=== PATIENT | male | born 1955 | race Caucasian/White ===

== ENCOUNTER 2018-08-06 06:11 | Observation (INO) ==
--- NOTE | 2018-08-06 06:53 | Emergency Department Note ---
Disposition Clinical Impression: Aphthous ulcer, Suspected soft tissue infection Disposition: Admitted As Inpatient Condition: Fair Referrals: NONE,PCP [Primary Care Provider] - Forms: ED Satisfaction Letter, Work/School Release Time of Disposition: 10:09 General Adult HPI - General Chief complaint: ED General Medical Stated complaint: "Oral Gland issues" Time Seen by Provider: 08/06/18 06:34 Source: patient Limitations: no limitations Nursing Notes Reviewed: Yes Vital Signs Reviewed: Yes - History of Present Illness HPI Narrative: Nontoxic-appearing 63-year-old male arrives to the ED complaining of a four-day history of mouth pain and subjective fever. Patient states that pain started 4 days ago felt like he bit his tongue. Mouth pain has increased and he complains of pain to his throat and subjective fevers 2 days as well as some mild nausea. Pain makes difficult to swallow. Patient has taken Tylenol 4 hours ago with no relief. Patient has not checked his temperature at home but states that he feels achy and chills. Patient also complains of swollen glands in his neck. Patient denies difficulty managing secretions, chest pain, shortness of breath or cough. Onset (ago): day(s) Location: mouth, neck Radiation: non-radiation Pain Severity: severe Pain Scale: 8 Quality: other Consistency: Worsening Improves with: nothing Worsens with: eating Associated symptoms: Reports: fever/chills Treatments Prior to Arrival: other (Tylenol with no relief) - Related Data Home Medications Medication Instructions Recorded Confirmed Gabapentin [Neurontin] 800 mg PO TID 08/06/18 08/06/18 Allergies Allergy/AdvReac Type Severity Reaction Status Date / Time Cyclobenzaprine AdvReac Nausea Verified 08/06/18 06:16 [From Flexeril] All systems ED: reviewed and negative except as stated. Review of Systems: As Per HPI Constitutional: Reports: fever (Subjective), chills. Denies: weakness, weight change Eyes: Denies: eye pain, eye discharge, vision change ENT ED: Reports: throat pain (With odynophagia), dental pain. Denies: ear pain, hearing loss, epistaxis, congestion, dysphagia Cardiovascular: Denies: chest pain, palpitations, dyspnea on exertion, edema, syncope Respiratory: Denies: cough, dyspnea, wheezes, hemoptysis, stridor Gastrointestinal: Reports: as per HPI, nausea. Denies: abdominal pain, vomiting, diarrhea, constipation, hematemesis, melena, hematochezia Genitourinary: Denies: urgency, dysuria, frequency, hematuria Musculoskeletal: Denies: back pain, neck pain, arthralgia, myalgia Integumentary: Denies: rash, abrasion, lesions Neurological: Denies: headache, weakness, numbness, paresthesias, confusion, abnormal gait, vertigo Psychiatric: Denies: anxiety, depression, suicidal thoughts, homicidal thoughts, auditory hallucinations, visual hallucinations Endocrine: Denies: fatigue Hematological/Lymphatic: Denies: easy bleeding, easy bruising Allergic/Immunologic: Denies: facial swelling, urticaria Past Medical History - Past Medical History Attestation: Yes The following information was validated with the patient. Source: patient, obtained from family, nursing notes reviewed Medical history: Reports: arthritis, other Surgical history: Reports: knee replacement (right, 2012 (Dr. De Guzman)) Psychiatric history: Reports: no psych history - Social History Smoking Status: Never smoker Smokeless Tobacco Status: No Alcohol use: Reports: none Drug use: Reports: none Physical Exam - General Limitations: no limitations General appearance: alert, in no apparent distress - Head Head exam: atraumatic, normocephalic - Eye Eye exam: Present: normal appearance, PERRL, EOMI. Absent: conjunctival injection - ENT ENT exam: mucous membranes moist - Expanded ENT Exam External ear exam: Present: normal external inspection. Absent: periauricular adenopathy Mouth exam: Present: tongue elevation, other (Multiple aphthous appearing ulcers noted to tongue, soft palate, bilateral tonsils with halitosis.). Absent: drooling, trismus, lip swelling, tongue normal, tounge swelling Teeth exam: Present: dental caries (Multiple) Throat exam: Present: tonsillar erythema, tonsillomegaly, tonsillar exudate, other (Uvula midline). Absent: R peritonsillar mass, L peritonsillar mass, muffled voice - Neck Neck exam: Present: tenderness, lymphadenopathy - Chest Chest inspection: Present: symmetric chest wall rise - Respiratory Respiratory exam: Present: normal lung sounds bilaterally. Absent: respiratory distress, wheezes - Extremities Exam Extremities exam: Present: normal inspection, full ROM - Neurological Exam Neurological exam: Present: alert, oriented X3, normal gait - Psychiatric Psychiatric exam: Present: normal affect, normal mood - Skin Skin exam: Present: warm, dry, intact, normal color Course Course Narrative: I spoke with Dr. Nogueira of the hospitalist service who has accepted the patient for admission to the hospitalist care. 1012: Dr. Roberts has evaluated the patient in the emergency department. She feels as if the patient does have a concomitant herpes infection. She recommends IV acyclovir. She also recommends increasing the patient's gabapentin to 1200 mg to 1600 mg, which may help with analgesia. - Consultations Consultation #1: I spoke with Dr. Roberts, ENT collections clerk. I discussed the patient's case, presentation, laboratory, and radiology findings. She suggested discharge home with oral clindamycin and a Medrol Dosepak and having the patient follow-up in the office next week for further evaluation and potential scoping. After discussing this with the patient and his significant other, they asked for admission for observation for concerns of potential airway compromise. As such, I spoke again with Dr. Roberts who states that this is reasonable. She states that she will be glad to consult with the patient in house. She does recommend continuing IV clindamycin and Decadron, 10 mg IV push every 8 hours 24 hours. Formal ENT consult has been placed in [facility]. Time: 09:10 Vital Signs Temperature 99 F 08/06/18 06:14 Pulse Rate 99 08/06/18 06:14 Respiratory Rate 20 08/06/18 06:14 Blood Pressure 165/98 08/06/18 06:14 O2 Sat by Pulse Oximetry 97 08/06/18 06:14 Temperature 99.9 F H 08/06/18 09:43 Pulse Rate 78 08/06/18 09:43 Respiratory Rate 16 08/06/18 09:43 Blood Pressure 133/87 08/06/18 09:43 O2 Sat by Pulse Oximetry 96 08/06/18 09:43 Oxygen Delivery Oxygen Delivery Room Air Medical Decision Making - Medical Records Medical records reviewed: Yes I reviewed the patient's medical records. - Lab Data Lab results reviewed: Yes I reviewed the patient's lab results. Lab results narrative: Lab Results 08/06/18 08/06/18 08/06/18 Range/Units 07:25 07:25 08:03 WBC 12.3 H (4.3-11.1) K/mcL RBC 5.42 (4.19-5.50) M/mcL Hgb 17.1 H (12.9-16.9) g/dL Hct 49.8 (37.5-50.1) % MCV 91.9 (83.0-100.0) fL MCH 31.5 (28.0-33.3) pg MCHC 34.3 (31.6-35.5) g/dL RDW 12.8 (11.5-14.5) % Plt Count 321 (140-400) K/mcL MPV 9.7 (9.4-12.4) fL Immature Gran % 0.5 (0-4) % Seg Neutrophils % 73.0 % Lymphocytes % 13.3 % Monocytes % 12.6 % Eosinophils % 0.0 % Basophils % 0.6 % Neutrophils # 9.0 H (1.6-8.9) K/mcL Lymphocytes # 1.6 (0.6-4.6) K/mcL Monocytes # 1.6 H (0.0-1.3) K/mcL Eosinophils # 0.0 (0.0-0.6) K/mcL Basophils # 0.1 (0.0-0.2) K/mcL Sodium 136 (136-145) mEq/L Potassium 4.0 (3.5-5.1) mEq/L Chloride 101 (98-107) mEq/L Carbon Dioxide 26 (23-29) mEq/L BUN 17 (8-23) mg/dL Creatinine 0.91 (0.70-1.30) mg/dL Est GFR ( Amer) > 60 (> 60) Est GFR (Non-Af Amer) > 60 (> 60) BUN/Creatinine Ratio 19 (6-26) Glucose 102 (70-105) mg/dL Calculated Osmolality 284 (280-300) Lactic Acid (0.5-2.2) mmol/L Calcium 9.7 (8.6-10.3) mg/dL Infectious [place] Assay Negative (Negative) 08/06/18 Range/Units 09:33 WBC (4.3-11.1) K/mcL RBC (4.19-5.50) M/mcL Hgb (12.9-16.9) g/dL Hct (37.5-50.1) % MCV (83.0-100.0) fL MCH (28.0-33.3) pg MCHC (31.6-35.5) g/dL RDW (11.5-14.5) % Plt Count (140-400) K/mcL MPV (9.4-12.4) fL Immature Gran % (0-4) % Seg Neutrophils % % Lymphocytes % % Monocytes % % Eosinophils % % Basophils % % Neutrophils # (1.6-8.9) K/mcL Lymphocytes # (0.6-4.6) K/mcL Monocytes # (0.0-1.3) K/mcL Eosinophils # (0.0-0.6) K/mcL Basophils # (0.0-0.2) K/mcL Sodium (136-145) mEq/L Potassium (3.5-5.1) mEq/L Chloride (98-107) mEq/L Carbon Dioxide (23-29) mEq/L BUN (8-23) mg/dL Creatinine (0.70-1.30) mg/dL Est GFR ( Amer) (> 60) Est GFR (Non-Af Amer) (> 60) BUN/Creatinine Ratio (6-26) Glucose (70-105) mg/dL Calculated Osmolality (280-300) Lactic Acid 0.7 (0.5-2.2) mmol/L Calcium (8.6-10.3) mg/dL Infectious [place] Assay (Negative) Result diagrams: 08/06/18 07:25 08/06/18 07:25 Lab Results 08/06/18 08/06/18 08/06/18 Range/Units 07:25 07:25 08:03 WBC 12.3 H (4.3-11.1) K/mcL RBC 5.42 (4.19-5.50) M/mcL Hgb 17.1 H (12.9-16.9) g/dL Hct 49.8 (37.5-50.1) % MCV 91.9 (83.0-100.0) fL MCH 31.5 (28.0-33.3) pg MCHC 34.3 (31.6-35.5) g/dL RDW 12.8 (11.5-14.5) % Plt Count 321 (140-400) K/mcL MPV 9.7 (9.4-12.4) fL Immature Gran % 0.5 (0-4) % Seg Neutrophils % 73.0 % Lymphocytes % 13.3 % Monocytes % 12.6 % Eosinophils % 0.0 % Basophils % 0.6 % Neutrophils # 9.0 H (1.6-8.9) K/mcL Lymphocytes # 1.6 (0.6-4.6) K/mcL Monocytes # 1.6 H (0.0-1.3) K/mcL Eosinophils # 0.0 (0.0-0.6) K/mcL Basophils # 0.1 (0.0-0.2) K/mcL Sodium 136 (136-145) mEq/L Potassium 4.0 (3.5-5.1) mEq/L Chloride 101 (98-107) mEq/L Carbon Dioxide 26 (23-29) mEq/L BUN 17 (8-23) mg/dL Creatinine 0.91 (0.70-1.30) mg/dL Est GFR ( Amer) > 60 (> 60) Est GFR (Non-Af Amer) > 60 (> 60) BUN/Creatinine Ratio 19 (6-26) Glucose 102 (70-105) mg/dL Calculated Osmolality 284 (280-300) Lactic Acid (0.5-2.2) mmol/L Calcium 9.7 (8.6-10.3) mg/dL Infectious [place] Assay Negative (Negative) 08/06/18 Range/Units 09:33 WBC (4.3-11.1) K/mcL RBC (4.19-5.50) M/mcL Hgb (12.9-16.9) g/dL Hct (37.5-50.1) % MCV (83.0-100.0) fL MCH (28.0-33.3) pg MCHC (31.6-35.5) g/dL RDW (11.5-14.5) % Plt Count (140-400) K/mcL MPV (9.4-12.4) fL Immature Gran % (0-4) % Seg Neutrophils % % Lymphocytes % % Monocytes % % Eosinophils % % Basophils % % Neutrophils # (1.6-8.9) K/mcL Lymphocytes # (0.6-4.6) K/mcL Monocytes # (0.0-1.3) K/mcL Eosinophils # (0.0-0.6) K/mcL Basophils # (0.0-0.2) K/mcL Sodium (136-145) mEq/L Potassium (3.5-5.1) mEq/L Chloride (98-107) mEq/L Carbon Dioxide (23-29) mEq/L BUN (8-23) mg/dL Creatinine (0.70-1.30) mg/dL Est GFR ( Amer) (> 60) Est GFR (Non-Af Amer) (> 60) BUN/Creatinine Ratio (6-26) Glucose (70-105) mg/dL Calculated Osmolality (280-300) Lactic Acid 0.7 (0.5-2.2) mmol/L Calcium (8.6-10.3) mg/dL Infectious [place] Assay (Negative) - Radiology Data Radiology results reviewed: Yes I reviewed the patient's radiology results. Soft Tissue Neck CT 08/06/18 07:04 IMPRESSION: Asymmetric prominence and enhancement in the region of the right palatine tonsil and posterior right tongue base, suspicious for infection/inflammation versus underlying neoplasm, new since April 19, 2011. Recommend correlation with direct visualization. Enhancement of the lingual tonsils bilaterally, and mild enhancement of the left palatine tonsil, may be related to tumor versus infection/inflammation, to lesser degree compared to the right palatine tonsil. Recommend correlation with direct visualization. Borderline prominence of the bilateral cervical lymph nodes, particularly at bilateral levels 1B and 1A, likely reactive. Underlying metastasis cannot be excluded. D/ / Jatinder Rosales MD / Jatinder Rosales MD Interpreting Provider: Jatinder Rosales MD Attestation Statement - Attestation Attestation: I, Stevan Llanes DO have provided [id number] time during the care of this patient. Detailed review the presentation, symptoms, medical history were discussed and reviewed with the advanced practice provider Elver Montaño PA-C/[employer]. Medical intervention labs and imaging studies were reviewed in detail. See full documentation of physical exam and course of care in the advanced practice provider's note. I agree with the determined course of care, medical inte rvention and disposition put forth by the advanced practice provider. See below documentation for changes or alterations in documentation.
[2018-08-06] MEDS ORDERED: Isovue-370 500 ML BOTTLE IVP ONE (07:04)
[2018-08-06] MEDS ORDERED: Magic Mouthwash 10 ML UD Cup PO STA (07:33)
[2018-08-06 07:40] LABS: Basophils % 0.6 %; Hematocrit 49.8 % (37.5-50.1); Hemoglobin 17.1 g/dL (12.9-16.9); Immature Granulocytes % 0.5 % (0-4); Lymphocytes % 13.3 %; Mean Corpuscular HGB Conc 34.3 g/dL (31.6-35.5); Mean Corpuscular Hemoglobin 31.5 pg (28.0-33.3); Mean Corpuscular Volume 91.9 fL (83.0-100.0); Mean Platelet Volume 9.7 fL (9.4-12.4); Monocytes % 12.6 %; Platelet Count 321 K/mcL (140-400); Red Blood Count 5.42 M/mcL (4.19-5.50); Red Cell Distribution Width 12.8 % (11.5-14.5); White Blood Count 12.3 K/mcL (4.3-11.1)
[2018-08-06 07:41] LABS: Basophils # 0.1 K/mcL (0.0-0.2); Lymphocytes # 1.6 K/mcL (0.6-4.6); Monocytes # 1.6 K/mcL (0.0-1.3)
--- NOTE | 2018-08-06 07:54 | Emergency Department Note ---
Disposition Clinical Impression: Aphthous ulcer, Suspected soft tissue infection Disposition: Admitted As Inpatient Condition: Fair Referrals: NONE,PCP [Primary Care Provider] - Forms: ED Satisfaction Letter, Work/School Release Time of Disposition: 09:50 General Adult HPI - General Chief complaint: ED Dental/Oral Stated complaint: "Oral Gland issues" Time Seen by Provider: 08/06/18 06:34 Source: patient Limitations: no limitations - History of Present Illness Location: mouth, neck Pain Scale: 8 Quality: other Improves with: nothing Worsens with: eating Associated symptoms: Reports: fever/chills Treatments Prior to Arrival: other (Tylenol with no relief) - Related Data Home Medications Medication Instructions Recorded Confirmed Gabapentin [Neurontin] 800 mg PO TID 08/06/18 08/06/18 Allergies Allergy/AdvReac Type Severity Reaction Status Date / Time Cyclobenzaprine AdvReac Nausea Verified 08/06/18 06:16 [From Flexeril] Constitutional: Reports: fever (Subjective), chills. Denies: weakness, weight change Eyes: Denies: eye pain, eye discharge, vision change ENT ED: Reports: throat pain (With odynophagia), dental pain. Denies: ear pain, hearing loss, epistaxis, congestion, dysphagia Cardiovascular: Denies: chest pain, palpitations, dyspnea on exertion, edema, syncope Respiratory: Denies: cough, dyspnea, wheezes, hemoptysis, stridor Gastrointestinal: Reports: as per HPI, nausea. Denies: abdominal pain, vomiting , diarrhea, constipation, hematemesis, melena, hematochezia Genitourinary: Denies: urgency, dysuria, frequency, hematuria Musculoskeletal: Denies: back pain, neck pain, arthralgia, myalgia Integumentary: Denies: rash, abrasion, lesions Neurological: Denies: headache, weakness, numbness, paresthesias, confusion, abnormal gait, vertigo Psychiatric: Denies: anxiety, depression, suicidal thoughts, homicidal thoughts, auditory hallucinations, visual hallucinations Endocrine: Denies: fatigue Hematological/Lymphatic: Denies: easy bleeding, easy bruising Allergic/Immunologic: Denies: facial swelling, urticaria Past Medical History - Past Medical History Medical history: Reports: arthritis, other Surgical history: Reports: knee replacement (right, 2012 (Dr. De Guzman)) Psychiatric history: Reports: no psych history - Social History Smoking Status: Never smoker Smokeless Tobacco Status: No Alcohol use: Reports: none Drug use: Reports: none Physical Exam - General Limitations: no limitations General appearance: alert, in no apparent distress Course Vital Signs Temperature 99 F 08/06/18 06:14 Pulse Rate 99 08/06/18 06:14 Respiratory Rate 20 08/06/18 06:14 Blood Pressure 165/98 08/06/18 06:14 O2 Sat by Pulse Oximetry 97 08/06/18 06:14 Temperature 99.9 F H 08/06/18 09:43 Pulse Rate 78 08/06/18 09:43 Respiratory Rate 16 08/06/18 09:43 Blood Pressure 133/87 08/06/18 09:43 O2 Sat by Pulse Oximetry 96 08/06/18 09:43 Oxygen Delivery Oxygen Delivery Room Air Medical Decision Making - Lab Data Result diagrams: 08/06/18 07:25 08/06/18 07:25 Lab Results 08/06/18 08/06/18 08/06/18 Range/Units 07:25 07:25 08:03 WBC 12.3 H (4.3-11.1) K/mcL RBC 5.42 (4.19-5.50) M/mcL Hgb 17.1 H (12.9-16.9) g/dL Hct 49.8 (37.5-50.1) % MCV 91.9 (83.0-100.0) fL MCH 31.5 (28.0-33.3) pg MCHC 34.3 (31.6-35.5) g/dL RDW 12.8 (11.5-14.5) % Plt Count 321 (140-400) K/mcL MPV 9.7 (9.4-12.4) fL Immature Gran % 0.5 (0-4) % Seg Neutrophils % 73.0 % Lymphocytes % 13.3 % Monocytes % 12.6 % Eosinophils % 0.0 % Basophils % 0.6 % Neutrophils # 9.0 H (1.6-8.9) K/mcL Lymphocytes # 1.6 (0.6-4.6) K/mcL Monocytes # 1.6 H (0.0-1.3) K/mcL Eosinophils # 0.0 (0.0-0.6) K/mcL Basophils # 0.1 (0.0-0.2) K/mcL Sodium 136 (136-145) mEq/L Potassium 4.0 (3.5-5.1) mEq/L Chloride 101 (98-107) mEq/L Carbon Dioxide 26 (23-29) mEq/L BUN 17 (8-23) mg/dL Creatinine 0.91 (0.70-1.30) mg/dL Est GFR ( Amer) > 60 (> 60) Est GFR (Non-Af Amer) > 60 (> 60) BUN/Creatinine Ratio 19 (6-26) Glucose 102 (70-105) mg/dL Calculated Osmolality 284 (280-300) Calcium 9.7 (8.6-10.3) mg/dL Infectious [place] Assay Negative (Negative) Attestation Statement - Attestation Attestation: I, Stevan Llanes DO have provided [id number] time during the care of this patient. Detailed review the presentation, symptoms, medical history were discussed and reviewed with the advanced practice provider Elver Montaño PA-C/[employer]. Medical intervention labs and imaging studies were reviewed in detail. See full documentation of physical exam and course of care in the advanced practice provider's note. I agree with the determined course of care, medical intervention and disposition put forth by the advanced practice provider. See below documentation for changes or alterations in documentation. 63-year-old male presents emergency room for evaluation of mouth pain. Patient describes burning sensation or time he eats or drinks. Denies any specific documented fevers but he has had intermittent fevers and chills at home according to him. Currently denying any headache or vision change. He has not had any nausea vomiting or diarrhea. Denies any chest pain or shortness of breath. He has no specific history of sick contacts travel outside the country or other complaints of immunosuppression. No history of cancer or antibiotic regimen this point. Patient does not take any medications at baseline. Physical exam his vital signs are stable. His head is atraumatic. Pupils are round reactive. Oropharynx is patent uvulas midline. Soft palate is symmetrical with no deviation. He does have visible ulcerations in the posterior pharynx and on the anterior aspect of the tongue into the sublingual area. There is mild tenderness noted around the dentition is poor care. He does not have any redness abscess formation or any other potential etiology at this point. He does have tenderness in the submandibular area of the jaw with no specific distention or swelling. He does have patent anterior aspect of the throat with palpation. He has no pain with rotational movement of the neck or flexion. He has no meningeal symptoms. He has no lymphadenopathy. Lungs are clear heart is regular. CT imaging of the neck lungs screening labs ordered at this time. Fluids pain medication given. Strep swab as well as Monospot testing was also added on. Patient will be symptomatically treated and then disposition determined. Evaluation will be completed looking for level exam general versus tracheitis or esophagitis at this time. Patient does not show any acute signs respiratory decompensation or airway compromise. We will monitor closely. See detailed documentation the physical exam, medical intervention, medical decision-making and disposition in the advanced practice provider's note. No critical care applied the patient's treatment course at this time. [address] scan. This was reviewed with the on-call your nose and throat physician Dr. woods. Discussion was had with the family with the recommendations from your nose and throat physician this time electing to be admitted. Information the past back onto the house and throat physician for obs ervation here in the hospital setting. Hospitalist Dr. choi reviewed the case in the emergency department and will admit the patient for continued management with concern for level weeks and progressive posterior pharynx inflammation and possible infection. Patient is otherwise clinically stable. Patient will be monitored in emergency room until admission process is completed. There is no acute signs of airway compromise or abnormality.
[2018-08-06 07:58] LABS: BUN/Creatinine Ratio 19 (6-26); Blood Urea Nitrogen 17 mg/dL (8-23); Calcium 9.7 mg/dL (8.6-10.3); Carbon Dioxide 26 mEq/L (23-29); Chloride 101 mEq/L (98-107); Glucose 102 mg/dL (70-105); Osmolality,Calculated 284 (280-300); Sodium 136 mEq/L (136-145); eGFR For African Americans > 60 (> 60); eGFR For Non-African Americans > 60 (> 60)
[2018-08-06] MEDS ORDERED: Clindamycin 900 MG/50 ML 900 MG/50 ML IV.SOLN IVPB ONE (09:07)
[2018-08-06] MEDS ORDERED: Dexamethasone 4 MG/ML VIAL IVP ONE (09:29)
--- NOTE | 2018-08-06 09:39 | ENT - Consult Note ---
Date of Encounter: 08/06/18 Time of Encounter: 09:38 Assessment and Plan (1) Recurrent oral herpes simplex infection Current Visit: Yes Status: Acute Ulcerations and distribution appear consistent with HSV outbreak although ddx includes VZV, pemphioid, phemphigus vulargis, and less likely Bechet. has recurrent cold sores on her lips though not currently. Patient can't recall if he's ever had a cold sore or not. -Recommend increasing neurontin for primary pain control. -Add magic mouthwash prn -NSAIDs should help with breakthrough pain. -Would try acyclovir but given that symptoms have been present for 4 days this may not be effective at this point. Code(s): B00.89 - Other herpesviral infection SNOMED Code(s): 355755008 (2) Acute periapical abscess Current Visit: Yes Status: Acute Of tooth #31. Discussed with patient and that this requires treatment/follow-up with oral surgery. I recommend they call their dentist or look up an oral surgeon in their network and follow up with them FINN after discharge. -Agree with clindamycin IV with transition to PO once pain improves as long as clinical exam does not worsen. -May do decadron 10mg IV q8h x3 to improve pain control. -Encourage improving dental hygiene, brush gently after meals. -If abscess worsens and requires more acute treatment will need to transfer to facility with oral surgeon coverage. ENT will continue to follow while inpatient. History of Present Illness Reason for ENT Consult: other (63 yo male w/ history of chewing tobacco quit 2 years ago with 4 day history of subjective fevers, sore throat and mouth and worsening odynophagia. Pain is localized to R lateral tongue currently. Has never had so much pain. Denies SOB/dysphagia/dyspnea/hemoptysis. Has pain with chewing and mouth opening. Has not eaten much in the past couple of days.) Past Med Surg Social Fam HX - Past Medical History Medical history: arthritis, other Psychiatric history: no psych history - Past Surgical History Surgical History: knee replacement (right, 2012 (Dr. De Guzman)) - Social History Smoking Status: Never smoker Smokeless Tobacco Status: No Alcohol use: none Drug use: none Medications and Allergies Gabapentin [Neurontin] 800 mg PO TID 08/06/18 [History] Allergy/AdvReac Type Severity Reaction Status Date / Time Cyclobenzaprine AdvReac Nausea Verified 08/06/18 06:16 [From Flexeril] ENT - ROS All systems PM: reviewed and no additional remarkable complaints except as stated (as in the HPI) ENT Exam Initial Vital Signs Temp Pulse Resp BP Pulse Ox 99 F 99 20 165/98 97 08/06/18 06:14 08/06/18 06:14 08/06/18 06:14 08/06/18 06:14 08/06/18 06:14 - General physical appearance well developed, well nourished, moderate pain - ENT normal pinna - Additional Findings Head: Normocephalic, atraumatic. No sinus tenderness to palpation Ears: normal auricles bilaterally. EAC clear on the left. EAC clear on the right. TM on the left is pearly with good landmarks, no retractions, and mobile to autoinsufflation. TM on the right is pearly with good landmarks, no retractions, and mobile to insufflation. Hearing intact to quiet voice. Nose: external nose without major deformity. Nasal septum is midline. Nasal turbinates with mild edema bilaterally. Mucosa is moist and pink, no rhinorrhea Oral cavity: No trismus. Significant halitosis. Hard palate anteriorly with ed nica and TTP. On the right side of the oral cavity and oropharynx there are shallow yellow ulcerations with thin rim of surrounding erythema diffusely distributed on the tongue, FOM, upper and lower wet lips, gingiva, and soft palate. Teeth adequate with significant wear. Tooth #31 with TT percussion and purulence with palpation around the crown.. Floor of mouth is soft but TTP. Bates's and Aure's ducts are normal bilaterally. Oropharynx: uvula is midline. Tonsils are 2+ and symmetric with herpetic lesion on the R tonsil. Posterior pharyngeal wall is unremarkable. Neck: no overlying skin changes. Midline trachea, no crepitus. Thyroid is small and symmetric. There is no lymphadenopathy but there is TTP on the right side. Parotid and submandibular glands are soft and symmetric. Cranial Nerves: CN II-XII intact and symmetric. Mood and affect are appropriate. CV: carotid pulses are symmetric and normal in the neck. No JVD, good BL UE distal pulses. Pulm: normal chest expansion, normal respiratory effort. No peripheral cyanosis. Exam Initial Vital Signs Temp Pulse Resp BP Pulse Ox 99 F 99 20 165/98 97 08/06/18 06:14 08/06/18 06:14 08/06/18 06:14 08/06/18 06:14 08/06/18 06:14 Results - Labs 08/06/18 07:25 08/06/18 07:25 Abnormal lab results WBC 12.3 K/mcL (4.3-11.1) H 08/06/18 07:25 Hgb 17.1 g/dL (12.9-16.9) H 08/06/18 07:25 9.0 K/mcL (1.6-8.9) H 08/06/18 07:25 1.6 K/mcL (0.0-1.3) H 08/06/18 07:25 Diabetes panel 08/06/18 Range/Units 07:25 Sodium 136 (136-145) mEq/L Potassium 4.0 (3.5-5.1) mEq/L Chloride 101 (98-107) mEq/L Carbon Dioxide 26 (23-29) mEq/L BUN 17 (8-23) mg/dL Creatinine 0.91 (0.70-1.30) mg/dL Glucose 102 (70-105) mg/dL Calcium 9.7 (8.6-10.3) mg/dL Calcium panel 08/06/18 Range/Units 07:25 Calcium 9.7 (8.6-10.3) mg/dL Pituitary panel 08/06/18 Range/Units 07:25 Sodium 136 (136-145) mEq/L Potassium 4.0 (3.5-5.1) mEq/L Chloride 101 (98-107) mEq/L Carbon Dioxide 26 (23-29) mEq/L BUN 17 (8-23) mg/dL Creatinine 0.91 (0.70-1.30) mg/dL Glucose 102 (70-105) mg/dL Calcium 9.7 (8.6-10.3) mg/dL Adrenal panel 08/06/18 Range/Units 07:25 Sodium 136 (136-145) mEq/L Potassium 4.0 (3.5-5.1) mEq/L Chloride 101 (98-107) mEq/L Carbon Dioxide 26 (23-29) mEq/L BUN 17 (8-23) mg/dL Creatinine 0.91 (0.70-1.30) mg/dL Glucose 102 (70-105) mg/dL Calcium 9.7 (8.6-10.3) mg/dL All other labs normal. - Imaging Additional studies: I reviewed the images of the CT neck. There is edema of the R ptyrgoids, edema and possible phlegmonous changes in the R tongue/FOM (however, dental artifact makes it hard to fully evaluate) and edema without abscess in the R parapharyngeal space. Airway is clear, no concern. Cannot appreation periapical abscess on CT but this may be due to significant dental artifact. Consult Discharge Plan - Plan Referrals: NONE,PCP [Primary Care Provider] -
--- NOTE | 2018-08-06 09:46 | Internal Med History&Physical ---
Date of Encounter: 08/06/18 Time of Encounter: 09:41 Internal Medicine - H&P: HPI Chief complaint: Mouth pain History of present illness: Mr. Allen is a 63 year old male w/ history of chewing tobacco for 25 years and quit 2 years ago who presented with 4 day history of subjective fevers, sore throat and progressive worsening of mouth pain that is aggravated chewing by the patient stating that the pain so sever that he is not eating anything, he denies SOB, chest pain,hemoptysis and coughing. ENT was consulted and they have seen the patient in the ER plan recommend admission for further evaluation and management of recurrent herpes infection as well as periapical abscesses. Past Med Surg Social Fam HX - Past Medical History Medical history: arthritis, other Psychiatric history: no psych history - Past Surgical History Surgical History: knee replacement (right, 2012 (Dr. De Guzman)) - Social History Smoking Status: Never smoker Smokeless Tobacco Status: No Alcohol use: none Drug use: none - Family History Mother Age: 86 Living Status: Still Living Hx Family Cardiac Disorders: Yes (Pacer) Hx Family Respiratory Disorders: No Hx Family Cancer: No Hx Family GI Disorders: No Hx Family Genitourinary Disorders: No Hx Family Endocrine Disorder: No Hx Family Musculoskeletal Disorders: No Hx Family Neuromuscular Disorders: No Hx Family Neurologic Disorders: No Hx Family HEENT Disorders: No Hx Family Autoimmune Disorders: No Hx Family Reproductive Disorders: No Hx Family Psychosocial Disorders: No Hx Family Medical Disorders: No Internal Medicine - H&P: Meds Gabapentin [Neurontin] 800 mg PO TID 08/06/18 [History] Allergy/AdvReac Type Severity Reaction Status Date / Time Cyclobenzaprine AdvReac Nausea Verified 08/06/18 14:12 [From Flexeril] All Systems PM: A 10-system review of systems was performed and is negative for pertinent findings except as documented above in the HPI. - Constitutional Vitals: Temp Pulse Resp BP Pulse Ox 99 F 99 20 165/98 97 08/06/18 06:14 08/06/18 06:14 08/06/18 06:14 08/06/18 06:14 08/06/18 06:14 General appearance: Present: A&O X 3 - Head Head exam: Present: atraumatic, normocephalic - Neck Neck exam general surgery: Present: supple, trachea midline. Absent: lym phadenopathy - Respiratory Respiratory exam: Present: CTAB. Absent: accessory muscle use, rales, rhonchi, wheezes - Cardiovascular Cardiovascular exam: Present: RRR, +S1, +S2. Absent: diastolic murmur, gallop, rubs, systolic murmur - GI/Abdominal GI/Abdominal exam: Present: normal bowel sounds, soft, no peritoneal signs. Absent: distended, tenderness - Extremities Exam Extremities exam: Present: warm, radial pulses palpable and symmetrical. Absent: calf tenderness, cyanotic, pedal edema Internal Med - H&P Results - Labs CBC & Chem 7: 08/07/18 05:03 08/07/18 05:03 Labs: Short CBC 08/06/18 Range/Units 07:25 WBC 12.3 H (4.3-11.1) K/mcL Hgb 17.1 H (12.9-16.9) g/dL Hct 49.8 (37.5-50.1) % Plt Count 321 (140-400) K/mcL Neutrophils # 9.0 H (1.6-8.9) K/mcL BMP 08/06/18 07:25 Sodium 136 Potassium 4.0 Chloride 101 Carbon Dioxide 26 BUN 17 Creatinine 0.91 Glucose 102 Calcium 9.7 - Impressions ITS Impressions Soft Tissue Neck CT 08/06/18 07:04 IMPRESSION: Asymmetric prominence and enhancement in the region of the right palatine tonsil and posterior right tongue base, suspicious for infection/inflammation versus underlying neoplasm, new since April 19, 2011. Recommend correlation with direct visualization. Enhancement of the lingual tonsils bilaterally, and mild enhancement of the left palatine tonsil, may be related to tumor versus infection/inflammation, to lesser degree compared to the right palatine tonsil. Recommend correlation with direct visualization. Borderline prominence of the bilateral cervical lymph nodes, particularly at bilateral levels 1B and 1A, likely reactive. Underlying metastasis cannot be excluded. D/ / Jatinder Rosales MD / Jatinder Rosales MD Interpreting Provider: Jatinder Rosales MD - Assessment and Plan (1) Recurrent oral herpes simplex infection Current Visit: Yes Status: Acute Assessment and plan: As per ENT recommendation patient was started on acyclovir, ENT will continue to follow the patient while inpatient for further recommendation. (2) Acute periapical abscess Current Visit: Yes Status: Acute Assessment and plan: The patient was started on empiric antibiotic with clindamycin, as well as Decadron 10 mg every 8 hours x 3 doses, ENT will continue to follow the patient for further evaluation and management. - Time Spent With Patient Total time spent is greater than 50% in coordination of care (as documented) at patient's floor/unit and/or counseling patient:
[2018-08-06] MEDS ORDERED: Ketorolac 15 MG/ML VIAL IVP ONE (10:05)
[2018-08-06] MEDS ORDERED: Ibuprofen 400 MG TABLET PO PRN (12:07)
[2018-08-06] MEDS ORDERED: Ondansetron 4 MG/2 ML VIAL IVP PRN (12:07)
[2018-08-06] MEDS ORDERED: *HR* HYDROcodone/Acet 5/325 mg TABLET PO PRN (12:07)
[2018-08-06] MEDS ORDERED: Naloxone 0.4 MG/ML INJ IVP PRN (12:07)
[2018-08-06] MEDS ORDERED: Acetaminophen 325 MG TABLET PO PRN (12:07)
[2018-08-06] MEDS: 0.9 % Sodium Chloride 1,000 ML IVC SCH ×2 (13:14→23:16)
[2018-08-06] MEDS: Acyclovir 500 MG in D5% in Water 100 ML IVPB SCH (16:36)
[2018-08-06] MEDS: Gabapentin 400 MG CAPSULE PO SCH ×2 (16:36→20:30)
[2018-08-06] MEDS: Dexamethasone 10 MG/ML VIAL IVP SCH (17:52)
[2018-08-06] MEDS: Clindamycin 600 MG/50 ML 600 MG/50 ML IV.SOLN IVPB SCH ×2 (17:52→23:15)
[2018-08-06] MEDS: Magic Mouthwash 10 ML UD Cup PO SCH (20:30)
[2018-08-07] MEDS: Acyclovir 500 MG in D5% in Water 100 ML IVPB SCH ×3 (01:48→14:59)
[2018-08-07] MEDS: Dexamethasone 10 MG/ML VIAL IVP SCH ×2 (01:48→11:14)
[2018-08-07 05:25] LABS: Basophils # 0.1 K/mcL (0.0-0.2); Basophils % 0.5 %; Hemoglobin 17.8 g/dL (12.9-16.9); Immature Granulocytes % 0.6 % (0-4); Lymphocytes # 1.6 K/mcL (0.6-4.6); Lymphocytes % 12.2 %; Mean Corpuscular HGB Conc 34.2 g/dL (31.6-35.5); Mean Corpuscular Hemoglobin 31.3 pg (28.0-33.3); Mean Corpuscular Volume 91.4 fL (83.0-100.0); Mean Platelet Volume 9.8 fL (9.4-12.4); Monocytes # 0.6 K/mcL (0.0-1.3); Monocytes % 4.6 %; Neutrophils # 10.9 K/mcL (1.6-8.9); Platelet Count 327 K/mcL (140-400); Red Blood Count 5.69 M/mcL (4.19-5.50); Red Cell Distribution Width 12.7 % (11.5-14.5); Segmented Neutrophils % 82.1 %; White Blood Count 13.3 K/mcL (4.3-11.1)
[2018-08-07 05:34] LABS: INR 1.1; Prothrombin Time 12.6 Seconds (9.4-12.1)
[2018-08-07 05:37] LABS: Activated Partial Thrombo Time 32.1 Seconds (26.0-36.0)
[2018-08-07 05:51] LABS: Alanine Aminotransferase 13 Units/L (7-52); Albumin 4.1 g/dL (3.5-5.7); Albumin/Globulin Ratio 1.3 (1.1-2.2); Alkaline Phosphatase 66 Units/L (34-104); Aspartate Amino Transferase 14 Units/L (13-39); BUN/Creatinine Ratio 24 (6-26); Bilirubin,Total 0.4 mg/dL (0.3-1.0); Blood Urea Nitrogen 20 mg/dL (8-23); Calcium 9.5 mg/dL (8.6-10.3); Carbon Dioxide 24 mEq/L (23-29); Chloride 104 mEq/L (98-107); Globulin 3.1 g/dL (2.4-3.5); Glucose 142 mg/dL (70-105); Magnesium 2.3 mg/dL (1.6-2.6); Osmolality,Calculated 297 (280-300); Potassium 4.6 mEq/L (3.5-5.1); Sodium 141 mEq/L (136-145); Total Protein 7.2 g/dL (6.4-8.9); eGFR For African Americans > 60 (> 60); eGFR For Non-African Americans > 60 (> 60)
[2018-08-07] MEDS: Clindamycin 600 MG/50 ML 600 MG/50 ML IV.SOLN IVPB SCH ×3 (05:53→18:08)
[2018-08-07 06:00] LABS: Platelet Estimate Normal (Normal); Reactive Lymphocytes Present (Not Present)
[2018-08-07 07:17] LABS: Adenovirus Not Detected (Not Detect); Bordetella Pertussis Not Detected (Not Detect); Coronavirus 229E Not Detected (Not Detect); Coronavirus HKU1 Not Detected (Not Detect); Coronavirus NL63 Not Detected (Not Detect); Coronavirus OC43 Not Detected (Not Detect); Human Metapneumovirus Not Detected (Not Detect); Human Rhinovirus/Enterovirus Not Detected (Not Detect); Influenza A Subtype 2009 H1 Not Detected (Not Detect); Influenza A Untypeable Not Detected (Not Detect); Influenza B Not Detected (Not Detect); Parainfluenza Virus 1 Not Detected (Not Detect); Parainfluenza Virus 2 Not Detected (Not Detect); Parainfluenza Virus 4 Not Detected (Not Detect); Respiratory Syncytial Virus Not Detected (Not Detect)
[2018-08-07 07:18] LABS: Chlamydophila pneumoniae Not Detected (Not Detect); Mycoplasma pneumoniae Not Detected (Not Detect); Parainfluenza Virus 3 Not Detected (Not Detect)
[2018-08-07] MEDS: Gabapentin 400 MG CAPSULE PO SCH ×2 (08:16→14:59)
[2018-08-07] MEDS: Magic Mouthwash 10 ML UD Cup PO SCH ×3 (08:16→18:08)
--- NOTE | 2018-08-07 14:06 | Discharge Summary ---
- NOTES TO OUTPATIENT PROVIDER Notes to Outpatient Provider: Transferred to [facility] for acute periapical abscess drainage Orders not resulted at time of discharge: Pending orders 08/06/18 07:58 Culture,Blood [BC] Stat 08/07/18 06:31 Herpes PCR(POS or NEG)-Blood Stat VZV PCR [Varicella-Zoster Virus PCR] Stat Date of Encounter: 08/07/18 Time of Encounter: 10:30 - Discharge Diagnosis (1) Recurrent oral herpes simplex infection Priority: Secondary Status: Acute (2) Acute periapical abscess Priority: Primary Status: Acute Hospital course: Mr. Allen is a 63 year old male with history of chewing tobacco was admitted for periapical abscess of tooth #31 and oral HSV infection. Started on IV clindamycin and acyclovir with minimal improvement. SEen in consultation with ENT who recommended pt to be transferred to [facility] with [facility] surgery for periapical abscess drainage. Transfer arrangement was made with [facility] pending bed availability. Discharge discussed with: patient, nurse, forestry consultant - Time Spent with Patient Total time spent providing and/or coordinating discharge services: 33 mins - Discharge Medications Prescriptions: Continued Gabapentin [Neurontin] 800 mg PO TID Home Medications: Gabapentin [Neurontin] 800 mg PO TID 08/06/18 [History] Allergies/Adverse Reactions: Allergy/AdvReac Type Severity Reaction Status Date / Time Cyclobenzaprine AdvReac Nausea Verified 08/06/18 14:12 [From Flexeril] Date of admission: 08/06/18 10:13 Primary care physician: PCP NONE Consults: 08/06/18 09:41 Consult to ENT [CONS] Stat Consulting Provider: RODY Busch Reason for Consult: oral soft tissue infection Time Notified: 09:42 Call Completed: Yes - Constitutional Vitals: Temp Pulse Resp BP Pulse Ox 97.4 F L 77 15 129/76 95 08/07/18 10:18 08/07/18 10:18 08/07/18 10:18 08/07/18 10:18 08/07/18 10:18 General appearance: Present: A&O X 3 Exam: General: Alert and oriented, not in acute distress. Oral cavity: scattered, shallow ulcerations on the tongue and lips. Purulence noted around tooth #31 Cardiovascular:Normal S1 & S2, No JVD. Pulse regular. Lungs: clear to auscultation, no wheezes/rales Abdomen:Soft, non-tender, no rigidity. Extremities:No deformity or swelling Neurological:Normal cognition and motor skills. Non-focal - Patient Status Disposition: Transfer Critical Access Hosp Condition: Fair - Discharge Instructions Follow Up With: NONE,PCP [Primary Care Provider] - - Diet and Activity Activity: resume usual activities as tolerated Diet: regular diet
[2018-08-07 14:36] VITALS: BP 128/82
--- NOTE | 2018-08-07 15:10 | ENT - Progress Note ---
<Chela Aden - Last Filed: 08/07/18 15:11> Date of Encounter: 08/07/18 Time of Encounter: 12:00 - Assessment and Plan (1) Acute periapical abscess Status: Acute Patient seen and examined at bedside today. Patient with persistent purulent drainage from abscessed area of right lower dentition. Patient has been on IV antibiotics-clindamycin for greater than 24 hours without significant improvement. Recommend referral to [facility] for oral surgeon for further evaluation and possible extraction. (2) Recurrent oral herpes simplex infection Status: Acute Continue Magic mouthwash and gabapentin for pain control. Continue acyclovir at this time. Subjective Patient reports: still having pain, other (continues to oral pain due to ulcerations and painful chewing on right side of mouth) Objective Initial Vital Signs Temp Pulse Resp BP Pulse Ox 99 F 99 20 165/98 97 08/06/18 06:14 08/06/18 06:14 08/06/18 06:14 08/06/18 06:14 08/06/18 06:14 - General physical appearance well developed, well nourished, no distress, moderate pain - Eyes PERRL, normal ocular movement - ENT normal pinna, normal nares, CN 2-12 grossly intact, Other (On the right side of the oral cavity and oropharynx there are shallow yellow ulcerations with thin rim of surrounding erythema diffusely distributed on the tongue, FOM, upper and lower lips, gingiva, and soft palate. Teeth adequate with significant decay and wear. Tooth #31 with purulence expressed with palpation around the crown.. Floor of mouth is soft but TTP. ) - Neck no masses, trachea midline, no lymphadectomy - Respiratory normal expansion, normal respiratory effort - Neurologic CN 2-12 grossly intact, normal coordination, normal sensation - Musculoskeletal normal gait, normal posture - Psychiatric oriented to time, oriented to person, oriented to place, speech is normal - Labs 08/07/18 05:03 08/07/18 05:03 Diabetes panel 08/07/18 Range/Units 05:03 Sodium 141 (136-145) mEq/L Potassium 4.6 (3.5-5.1) mEq/L Chloride 104 (98-107) mEq/L Carbon Dioxide 24 (23-29) mEq/L BUN 20 (8-23) mg/dL Creatinine 0.82 (0.70-1.30) mg/dL Glucose 142 H (70-105) mg/dL Calcium 9.5 (8.6-10.3) mg/dL AST 14 (13-39) Units/L ALT 13 (7-52) Units/L Alkaline Phosphatase 66 (34-104) Units/L Albumin 4.1 (3.5-5.7) g/dL Calcium panel 08/07/18 Range/Units 05:03 Calcium 9.5 (8.6-10.3) mg/dL Phosphorus 3.0 (2.7-4.5) mg/dL Albumin 4.1 (3.5-5.7) g/dL Pituitary panel 08/07/18 Range/Units 05:03 Sodium 141 (136-145) mEq/L Potassium 4.6 (3.5-5.1) mEq/L Chloride 104 (98-107) mEq/L Carbon Dioxide 24 (23-29) mEq/L BUN 20 (8-23) mg/dL Creatinine 0.82 (0.70-1.30) mg/dL Glucose 142 H (70-105) mg/dL Calcium 9.5 (8.6-10.3) mg/dL Adrenal panel 08/07/18 Range/Units 05:03 Sodium 141 (136-145) mEq/L Potassium 4.6 (3.5-5.1) mEq/L Chloride 104 (98-107) mEq/L Carbon Dioxide 24 (23-29) mEq/L BUN 20 (8-23) mg/dL Creatinine 0.82 (0.70-1.30) mg/dL Glucose 142 H (70-105) mg/dL Calcium 9.5 (8.6-10.3) mg/dL Total Bilirubin 0.4 (0.3-1.0) mg/dL AST 14 (13-39) Units/L ALT 13 (7-52) Units/L Alkaline Phosphatase 66 (34-104) Units/L Albumin 4.1 (3.5-5.7) g/dL Consult Discharge Plan - Plan Referrals: NONE,PCP [Primary Care Provider] - <Solis Clifford - Last Filed: 08/10/18 15:42> Date of Encounter: 08/10/18 - Assessment and Plan (1) Acute periapical abscess Status: Acute Patient was seen and examined by myself independent of the [employer]. I agree with the assesment and plan outlined above. 63 yr old M with tooth 31 pain. Physical exam reveals purulence around the crown of the tooth despite treatment with Clindamycin. Recommend that patient be seen by oral surgery to extract tooth to treat infection of periapical abscess. Objective Initial Vital Signs Temp Pulse Resp BP Pulse Ox 99 F 99 20 165/98 97 08/06/18 06:14 08/06/18 06:14 08/06/18 06:14 08/06/18 06:14 08/06/18 06:14 - Labs 08/07/18 05:03 08/07/18 05:03
== END 2018-08-07 20:27 | disposition critical access hospital (66) ==
LOC: 3ANU 06:11 → EMEROOARM 06:11 → SUATTDRO 10:13 → 3ANU 10:30
PROVIDERS: ADMIT Internal Medicine Nephrology; ATTEND Internal Medicine